=== PATIENT | male | born 1985 | race African-American/Black ===

== ENCOUNTER 2017-10-08 23:05 | Emergency (ER) | payer SELFPAY ==
[~2017-10-08] VITALS: Ht 170.2 cm; Wt 69.4 kg
[~2017-10-08 23:05] MED LIST: ALEVE220 MG PO; CIPRO500 MG PO; MOTRIN800 MG PO; OMEPRAZOLE20 MG PO; ZOFRAN ODT4 MG PO
[2017-10-08 23:28] LABS: SOURCE URINE
[2017-10-08 23:50] VITALS: BP 131/77
[2017-10-11 12:45] LABS: CHLAMYDIA TRACHOMATIS NEGATIVE; NEISSERIA GONORRHOEAE POSITIVE
== END 2017-10-08 23:54 | disposition home or self-care (01) ==
LOC: EME 23:05
PROVIDERS: Physician Assistant Medical
DX: N34.2 Other urethritis (principal); F17.200 Nicotine dependence, unspecified, uncomplicated
CPT/HCPCS: 81003; 87491; 87591; 99281; 99283; J0696